=== PATIENT | male | born 1970 | race Caucasian/White ===

== ENCOUNTER → 2018-04-02 18:40 | Outpatient (CLI) | payer OTHER, SELFPAY ==
[2018-04-02 19:14] LABS: PSA,Total - Annual Screen 0.95 ng/mL (0.00-4.00)
== END ==
PROVIDERS: Visit Provider Nurse Practitioner
DX: E29.1 Testicular hypofunction (principal)
CPT/HCPCS: 84153; 84403; G0103

== ENCOUNTER → 2018-09-30 08:43 | Outpatient (CLI) | payer OTHER, SELFPAY ==
[2018-09-30 08:21] VITALS: BMI 34.4
--- NOTE | 2018-09-30 08:44 | RAD_ITS ---
STUDY: X-RAY - LEFT KNEE REASON FOR EXAM: Male, 48 years old. Left knee pain TECHNIQUE: 4 view(s) of the knee. COMPARISON: None. FINDINGS: Normal visualized distal femur. Normal visualized proximal tibia and fibula. Normal proximal tibiofibular articulation. Normal medial femorotibial compartment. Normal lateral femorotibial compartment. Normal patellofemoral articulation. Trace volume joint effusion noted. The soft tissue structures are unremarkable. RAD/Knee 4 or More Views IMPRESSION: No fracture, malalignment or erosive process. Trace joint effusion. Electronically Signed: Hayden Zimmerman MD at 17:07 EST , Service support ,
== END ==
PROVIDERS: Referring Provider Orthopaedic Surgery; Visit Provider Orthopaedic Surgery
DX: M70.41 Prepatellar bursitis, right knee (principal); Y93.9 Activity, unspecified
CPT/HCPCS: 73564

== ENCOUNTER → 2019-01-15 04:59 | Outpatient (CLI) | payer OTHER, SELFPAY ==
[2019-01-06 17:39] VITALS: BMI 36.3
[2019-01-15 05:20] LABS: Absolute Lymphocyte Count 1.13 X10^3/ul (0.83-4.51); Absolute Neutrophil Count 2.5 X10^3/uL (2.0-7.7); Basophil# 0.01 X10^3/uL; Basophil% 0.2 % (0-1); Eosinophil# 0.13 X10^3/uL; Eosinophils% 2.8 % (0-5); Hematocrit 47.1 % (40-54); Hemoglobin 15.7 g/dl (13.0-16.5); Lymphocyte # 1.13 X10^3/ul (4.0); Lymphocyte % 24.4 % (19-41); Mean Corp Hgb Conc 33.3 g/gl (32-36); Mean Corpuscular Hgb 28.3 pg (27.0-32.0); Mean Platelet Vol. 10.6 fl (6.2-12.0); Monocyte# 0.85 X10^3/uL; Monocyte% 18.4 % (0-10); Platelet Count 201 K/mm3 (150-450); RBC Distribution Width CV 14.1 % (11.6-14.6); RBC Distribution Width SD 43.7 fl (35.1-43.9); Red Blood Count 5.54 M/mm3 (4.6-6.2); White Blood Count 4.6 K/mm3 (4.4-11.0)
[2019-01-15 05:21] LABS: POSITIVE COUNT NO; POSITIVE DIFFERENTIAL NO; POSITIVE MORPHOLOGY NO
[2019-01-15 05:54] LABS: PSA,Total- Diagnostic 0.85 ng/mL (0.0-4.0)
[2019-01-18 13:12] LABS: Testosterone Free 15.3 pg/mL (6.8-21.5)
== END ==
PROVIDERS: Referring Provider Nurse Practitioner; Visit Provider Nurse Practitioner
DX: E29.1 Testicular hypofunction (principal)
CPT/HCPCS: 84153; 84402; 85025

== ENCOUNTER → 2019-02-11 18:58 | Outpatient (CLI) | payer OTHER, SELFPAY ==
[2019-02-06 18:19] VITALS: BMI 36.3
[2019-02-11 19:31] LABS: Absolute Lymphocyte Count 1.53 X10^3/ul (0.83-4.51); Basophil# 0.03 X10^3/uL; Basophil% 0.3 % (0-1); Eosinophil# 0.15 X10^3/uL; Eosinophils% 1.7 % (0-5); Hematocrit 48.7 % (40-54); Hemoglobin 16.3 g/dl (13.0-16.5); Lymphocyte # 1.53 X10^3/ul (4.0); Lymphocyte % 17.1 % (19-41); Mean Corp Hgb Conc 33.5 g/gl (32-36); Mean Corpuscular Hgb 28.4 pg (27.0-32.0); Mean Platelet Vol. 10.7 fl (6.2-12.0); Monocyte# 1.21 X10^3/uL; Monocyte% 13.5 % (0-10); Neutrophil # 6.03 X10^3/uL (2.7-7.7); Neutrophil % 67.2 % (47-70); Platelet Count 224 K/mm3 (150-450); RBC Distribution Width CV 14.8 % (11.6-14.6); RBC Distribution Width SD 45.9 fl (35.1-43.9); Red Blood Count 5.73 M/mm3 (4.6-6.2)
[2019-02-11 19:42] LABS: POSITIVE COUNT NO; POSITIVE DIFFERENTIAL NO; POSITIVE MORPHOLOGY NO
[2019-02-11 19:52] LABS: PSA,Total- Diagnostic < 0.01 ng/mL (0.0-4.0)
[2019-02-15 12:13] LABS: Testosterone Free 21.1 pg/mL (6.8-21.5)
== END ==
PROVIDERS: Referring Provider Nurse Practitioner; Visit Provider Nurse Practitioner
DX: E29.1 Testicular hypofunction (principal)
CPT/HCPCS: 84153; 84402; 85025

== ENCOUNTER → 2023-10-29 | Outpatient (CLI) | payer OTHER, SELFPAY ==
--- OUTSIDE RECORDS SUMMARY | 2023-10-29 06:36 | XMS RPT_ITS | CCD ---
Author Name Unknown Address [address] [place] [address] Organization [facility] Care Team Providers Care Pan Operator Name Role Phone Kirill Walsh MD Primary Care Provider FRANDY, JANNETTE Referring Unavailable WALSH, KIRILL R Primary Care Unavailable MINNIEEEN, JANNETTE Attending Unavailable GRICEL AVENDANO Primary Care Unavailable FRANDY, JANNETTE Admitting Unavailable VALERIA WISEYA Attending Unavailable Kirill Walsh MD Primary Care Provider [phone] Martell OFFICE SUPPORT ASSISTANT-CNicky Unavailable Reta Fox Unavailable KIRILL WALSH Attending Unavailable , KIRILL Primary Care Unavailable KIRILL WALSH Attending Unavailable , KIRILL Primary Care Unavailable Kirill Walsh MD Primary Care Provider CRISSY, WAGNER A Primary Care Unavailable SELF Referring Unavailable SILVIA FLYNN Attending Unavailable WALSH, KIRILL R Primary Care Unavailable ALADOMENICEEN, JANNETTE Referring Unavailable MURALI BANKS Referring Unavailable WALSH, KIRILL R Primary Care Unavailable CRISSY, WAGNER A Referring Unavailable CRISSY, WAGNER A Primary Care Unavailable HARP, RADHA Attending Unavailable WALSH, KIRILL R Primary Care Unavailable CRISSY, WAGNER A Primary Care Unavailable HARP, RADHA Attending Unavailable SELF Referring Unavailable CRISSY, WAGNER A Primary Care Unavailable HARP, RADHA Attending Unavailable SELF Referring Unavailable HARP, RADHA Attending Unavailable CRISSY, WAGNER A Primary Care Unavailable CRISSY, WAGNER A Primary Care Unavailable BETHANY POSADA Attending Unavailable NEAL MARCUS Referring Unavailable CRISSY, WAGNER A Attending Unavailable NEAL MARCUS Referring Unavailable WALSH, KIRILL R Primary Care Unavailable WALSH, KIRILL R Primary Care Unavailable HARP, RADHA Attending Unavailable NEAL MARCUS Attending Unavailable WALSH, KIRILL R Primary Care Unavailable HARP, RADHA Attending Unavailable WALSH, KIRILL R Primary Care Unavailable JANNETTE WISE Attending Unavailable WALSH, KIRILL R Primary Care Unavailable WALSH, KIRILL R Referring Unavailable HARP, RADHA Attending Unavailable WALSH, KIRILL R Primary Care Unavailable HARP, RADHA Attending Unavailable WALSH, KIRILL R Primary Care Unavailable WALSH, KIRILL R Primary Care Unavailable HARP, RADHA Attending Unavailable Allergies Allergy Classification Reported Allergen(s) Allergy Type Date of Onset Reaction(s) Facility (5 sources) candesartan Drug Allergy 12-12-2018 [facility] [employer] Work Phone: (9 sources) [employer]; Translations: [LITHIUM] Drug Allergy 05-03-2013 [facility] (5 sources) nefazodone Drug Allergy 09-25-2013 [facility] (4 sources) nefazodone; Translations: [NEFAZODONE HCL] Drug Allergy 09-25-2013 [facility] Other [facility] Medications Current Medications Medication Drug Class(es) Dates Sig (Normalized) Sig (Original) B-D 3CC LUER-CRIS SYR 86UV4-5/2 22G X 1-1/2 3 ML misc (5 sources) Start: 07-03-2022 B-D 3CC LUER-CRIS SYR 93BE3-8/2 22G X 1-1/2 3 ML misc COVERED BY INSURANCE AND AVAILABLE. FOR USE BIWEEKLY. 0 07/03/2022 Active 12 hr buPROPion hydrochloride 150 mg extended release oral tablet (6 sources) Aminoketone Start: 06-30-2022 take 1 tablet by mouth once daily buPROPion SR (Wellbutrin SR) 150 MG 12 hr tablet Take 150 mg by mouth daily. 0 06/30/2022 Active Completed/Discontinued Medications Medication Drug Class(es) Dates Sig (Normalized) Sig (Original) amLODIPine 10 mg oral tablet (5 sources) Dihydropyridine Calcium Channel Tova Start: 08-24-2022 End: 08-31-2023 take 1 tablet by mouth once daily amLODIPine (Norvasc) 10 MG tablet Indications: Essential (primary) hypertension TAKE 1 TABLET BY MOUTH EVERY DAY 90 tablet 3 08/24/2022 08/31/2023 Discontinued docosahexaenoic acid 120 mg / eicosapentaenoic acid 180 mg oral capsule (3 sources) End: 03-26-2023 fish oil-omega-3 fatty acids 1000 MG capsule Take by mouth. 0 03/26/2023 Discontinued (Med list cleanup) magnesium gluconate 500 mg oral tablet (3 sources) End: 03-26-2023 magnesium gluconate (Magonate) 500 MG tablet Take 400 mg by mouth. 0 03/26/2023 Discontinued (Med list cleanup) UNABLE TO FIND (9 sources) End: 03-26-2023 UNABLE TO FIND Med Name: beet juice 0 03/26/2023 Discontinued (Med list cleanup) Problems Active Problems Problem Classification Problem Date Documented Date Episodic/Chronic Abdominal hernia (1 source) Diaphragmatic hernia without obstruction or gangrene; Translations: [Hiatal hernia] Onset: 12-16-2022 Episodic Anxiety disorders (6 sources) Panic disorder without agoraphobia; Translations: [Panic disorder [episodic paroxysmal anxiety]] Onset: 04-06-2012 05-31-2022 Chronic Attention-deficit, conduct, and disruptive behavior disorders (1 source) Attention-deficit hyperactivity disorder, predominantly inattentive type; Translations: [Attention deficit hyperactivity disorder (ADHD), predominantly inattentive type] Onset: 03-26-2014 Chronic Disorders of lipid metabolism (1 source) Hyperlipidemia, unspecified; Translations: [Hyperlipidemia, unspecified hyperlipidemia type] Onset: 11-16-2022 Chronic Disorders usually diagnosed in infancy, childhood, or adolescence (5 sources) Attention deficit hyperactivity disorder, predominantly inattentive type; Translations: [Other specified behavioral and emotional disorders with onset usually occurring in childhood and adolescence] Onset: 02-13-2020 05-31-2022 Chronic Esophageal disorders (6 sources) Gastroesophageal reflux disease; Translations: [Gastro-esophageal reflux disease without esophagitis] Onset: 09-23-2022 09-23-2022 Chronic Essential hypertension (12 sources) Hypertensive disorder; Translations: [Essential (primary) hypertension] Onset: 09-22-2021 05-31-2022 Chronic Mood disorders (18 sources) Bipolar I disorder; Translations: [Bipolar disorder, unspecified] Onset: 08-21-2013 05-31-2022 Chronic Osteoarthritis (5 sources) Bilateral osteoarthritis of knees; Translations: [Bilateral primary osteoarthritis of knee] Onset: 04-01-2022 09-23-2022 Chronic Other endocrine disorders (3 sources) Endocrine disorder, unspecified; Translations: [Endocrine disorder, unspecified] Onset: 05-31-2022 Episodic Other hereditary and degenerative nervous system conditions (1 source) Essential tremor; Translations: [Essential tremor] Onset: 04-01-2023 Chronic Other male genital disorders (5 sources) Male erectile dysfunction, unspecified; Translations: [Impotence of organic origin] Onset: 09-23-2022 09-23-2022 Chronic Other nervous system disorders (1 source) Other drug induced secondary parkinsonism; Translations: [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)] Onset: 04-01-2023 Chronic Other nervous system disorders (1 source) Other acute postprocedural pain; Translations: [Post-op pain] Onset: 12-03-2022 Episodic Other screening for suspected conditions (not mental disorders or infectious disease) (1 source) Encounter for screening for malignant neoplasm of prostate; Translations: [Prostate cancer screening] Onset: 10-18-2023 Episodic Residual codes; unclassified (1 source) Sleep apnea, unspecified; Translations: [Sleep apnea, unspecified type] Onset: 11-13-2022 Chronic Unclassified (1 source) High Cholesterol Unclassified (1 source) No-show for appointment; Translations: [No-show for appointment] Onset: 12-15-2022 Viral infection (2 sources) COVID-19; Translations: [COVID-19] Onset: 04-26-2023 Past or Other Problems Problem Classification Problem Date Documented Da te Episodic/Chronic Diabetes mellitus without complication (7 sources) Impaired fasting glycemia; Translations: [Impaired fasting glucose] Onset: 08-19-2020 05-31-2022 Episodic Other endocrine disorders (6 sources) Hypotestosteronis m; Translations: [Endocrine disorder, unspecified] Onset: 04-11-2019 05-31-2022 Episodic Other nervous system disorders (1 source) Tremor Onset: 04-01-2023 Episodic Residual codes; unclassified (1 source) Procedure and treatment not carried out for other reasons; Translations: [Appointment canceled by hospital] Onset: 12-15-2022 Episodic Results Test Name Value Interpretation Reference Range Facil ity Vital Signs Date Time Vital Sign Value Performing Clinician Leai aparna 04-26-2023 17:38-0400 Body temperature 98.24 [degF] Nicky Martell OFFICE SUPPORT ASSISTANT-C [facility] 04-26-2023 17:38-0400 Body weight 96.6 kg Nicky Martell OFFICE SUPPORT ASSISTANT-C [facility] 04-26-2023 17:38-0400 Diastolic blood pressure 86 mm[Hg] Nicky Martell OFFICE SUPPORT ASSISTANT-C [facility] 04-26-2023 17:38-0400 Heart rate 60 /min Nicky Martell OFFICE SUPPORT ASSISTANT-C [facility] 04-26-2023 17:38-0400 Respiratory rate 16 /min Nicky Martell OFFICE SUPPORT ASSISTANT-C [facility] 04-26-2023 17:38-0400 SaO2% (BldA) [Mass fraction] 98 % Nicky Martell OFFICE SUPPORT ASSISTANT-C [facility] 04-26-2023 17:38-0400 Systolic blood pressure 132 mm[Hg] Nicky Martell OFFICE SUPPORT ASSISTANT-C [facility] 03-24-2023 08:00-0400 Diastolic blood pressure 78 mm[Hg] Kirill Walsh MD Work Phone: [facility] [employer] 03-24-2023 08:00-0400 Systolic blood pressure 136 mm[Hg] Kirill Walsh MD Work Phone: [facility] [employer] 03-24-2023 07:43-0400 Body height 175.3 cm Kirill Walsh MD Work Phone: [facility] [employer] 03-24-2023 07:43-0400 Body mass index (BMI) [Ratio] 31.9 kg/m2 Kirill Walsh MD Work Phone: [facility] [employer] 03-24-2023 07:43-0400 Body weight 97.98 kg Kirill Walsh MD Work Phone: [facility] [employer] 03-24-2023 07:43-0400 Heart rate 84 /min Kirill Walsh MD Work Phone: [facility] [employer] 03-24-2023 07:43-0400 SaO2% (BldA) [Mass fraction] 96 % Kirill Walsh MD Work Phone: [facility] Encounters Encounter Date Encounter Type Care Provider Facility Start: 10-18-2023 End: 10-18-2023 ambulatory WAGNER A CRISSY Facility:[facility] Start: 10-18-2023 ambulatory WAGNER A CRISSY Faci [facility] Start: 09-24-2023 End: 09-24-2023 ambulatory WAGNER A CRISSY Facility:[facility] Start: 09-20-2023 End: 09-20-2023 ambulatory WAGNER A CRISSY Facility:[facility] Start: 08-30-2023 Refill Kirill Walsh MD Work Phone: [facility] Start: 08-23-2023 End: 08-23-2023 ambulatory RADHA HARP Facility:[facility] Start: 07-27-2023 End: 07-27-2023 ambulatory WAGNER A CRISSY Facility:[facility] Start: 07-26-2023 End: 07-26-2023 ambulatory WAGNER A CRISSY Facility:[facility] Start: 06-21-2023 End: 06-21-2023 ambulatory KIRILL R WALSH Facility:[facility] Start: 05-03-2023 End: 05-03-2023 ambulatory KIRILL R Facility:[facility] Start: 04-26-2023 Nicky Martell OFFICE SUPPORT ASSISTANT -C [facility] Start: 2023 Refill Kirill Walsh MD Work Phone: [facility] Start: 04-01-2023 End: 04-01-2023 ambulatory NEAL CHAVEZTER Facility:[facility] Start: 03-24-2023 End: 03-24-2023 ambulatory KIRILL WALSH [facility] Start: 03-24-2023 End: 03-24-2023 Office outpatient visit 25 minutes Kirill Walsh MD Work Phone: [facility] Procedures Date Procedure Procedure Detail Performing Clinician Start: 03-24-2023 Assay of testosteron e total Kirill Walsh MD Work Phone: Start: 10-12-2022 Lipid 1996 panel - S richardson or Plasma Kirill Walsh MD Work Phone: Plan of Treatment Date Care Activity Detail Author Start: 2029 RSV Immunization age d 60 or older (1 - 1-dose 60+ series) RSV Immunization aged 60 or older (1 - 1-dose 60+ series) [facility] Start: 01-26-2029 DTaP/Tdap/Td Vaccine s (2 - Tdap) DTaP/Tdap/Td Vaccines (2 - Tdap) [facility] Start: 01-26-2029 DTaP/Tdap/Td Vaccine s (3 - Td or Tdap) DTaP/Tdap/Td Vaccines (3 - Td or Tdap) [facility] Start: 10-12-2027 Lipid panel Lipid Panel [facility] Start: 10-12-2023 Diabetes mellitus screening Diabetes Screening [facility] Start: 09-24-2023 End: 09-24-2023 Patient encounter procedure [facility] Start: 09-20-2023 Zoster Vaccines (2 of 2) Zoster Vacc lon (2 of 2) [facility] Start: 04-16-2023 COVID-19 Vaccine ( season) COVID-19 Vaccine ( season) [facility] Start: 04-16-2023 Influenza vaccination Influenza Vacc ine (#1) [facility] Start: 03-24-2023 End: 03-24-2023 Patient encounter procedure 03/24/2023 Office Visit Family Medicine Kirill Walsh MD [address] [place] [address] [facility] Start: 03-23-2023 Depresssion Monitoring Depresssion M onitoring [facility] Start: 02-28-2021 COVID-19 Vaccine (3 - Booster for Pfizer series) COVID-19 Vaccine (3 - Booster for Pfizer series) [facility] Start: 2019 Zoster Vaccines (1 of 2) Zoster Vacc lon (1 of 2) [facility] Start: 1987 Hepatitis C screening Hepatitis C Sc reening [facility] Start: 1970 MMR Vaccines (1 of 1 - Standard series) MMR Vaccines (1 of 1 - Standard series) [facility] Start: 1969 Hepatitis B Vaccines (1 of 3 - 3-dose series) Hepatitis B Vaccines (1 of 3 - 3-dose series) [facility] Start: 1969 HIV screening HIV Screening [facility] Start: 1969 Screening for malign ant neoplasm of colon [facility] Immunizations Immunization Date Immunization Notes Care Provider Fa [facility] 08-06-2022 Influenza, injectabl e, [place] Canine Kidney, preservative free, quadrivalent Kirill Walsh MD Work Phone: [facility] 08-06-2022 influenza virus vacc ine, unspecified formulation Kirill Walsh MD Work Phone: [facility] 01-03-2021 Pfizer SARS-CoV-2 Vaccination Kirill Walsh MD Work Phone: [facility] 12-13-2020 Pfizer SARS-CoV-2 Vaccination Kirill Walsh MD Work Phone: [facility] 05-18-2019 influenza, injectabl e, quadrivalent, preservative free Kirill Walsh MD Work Phone: [facility] 01-26-2019 diphtheria, tetanus toxoids and acellular pertussis vaccine, unspecified formulation Kirill Walsh MD Work Phone: [facility] 01-26-2019 tetanus toxoid, redu ericka diphtheria toxoid, and acellular pertussis vaccine, adsorbed Kirill Walsh MD Work Phone: [facility] 04-05-2015 tetanus and diphther ia toxoids, adsorbed, preservative free, for adult use (5 Lf of tetanus toxoid and 2 Lf of diphtheria toxoid) Kirill Walsh MD Work Phone: [facility] Payers Date Payer Category Payer Private Health Insurance [facility] [id number] 2022-Present [address] [place] [address] Commercial [id number] 2018 Unknown [id number] Social History Date Type Detail Facility Tobacco smoking status NHIS Never smoked tobacco [facility] Start: 09-23-2022 End: 03-24-2023 Alcohol intake Lifetime non-drinker (finding) [facility] Start: 09-23-2022 History SDOH Alcohol Frequency 1 [facility] Start: 09-23-2022 History SDOH Alcohol Std Drinks 0 [facility] Start: 09-23-2022 History SDOH Financial 5 [facility] Start: 09-23-2022 History SDOH Transport Med 2 [facility] Start: 1970 Sex Assigned At Not on file S [facility] Start: 09-23-2022 End: 03-24-2023 History of Social function [facility] Start: 09-23-2022 End: 03-24-2023 Alcohol Use Disorder Identification Test - Consumption [AUDIT-C] [facility] How often to you hav e a drink containing alcohol? Never [facility] How many standard dr inks containing alcohol do you have on a typical day? Patient does not drink [facility] (I/We) worried ita er (my/our) food would run out before (I/we) got money to buy more. Never true [facility] Start: 03-14-2023 End: 03-24-2023 Exposure to SARS-CoV-2 (event) [facility] sure [facility] Notes 11-17-2022 to 10-18-2023 Telephone Encounter - Thao Araiza MA - 08/30/2023 9:22 AM ESTTelephone Encounter - Thao Araiza MA - 08/30/2023 9:22 AM ESTTelephone Encounter - Kirill Walsh MD - 04/23/2023 5:47 PM EDT Note Date & Type Note Facility 10-18-2023 Note HNO ID: [id number] Author: SILVIA FLYNN MD Service: ? Author Type: Resident Type: Progress Notes Filed: 10/25/2023 15:40 Note Text: PSYC FOLLOW UP - PSYCHIATRIC PROGRESS NOTE CC: Follow up With the patient consent, visit was performed virtually. I have communicated my name and active licensure. The patient's identity and physical location were verified at the time of this visit. Either the patient or their legal patient support representative has been informed of the risks and benefits of -- and alternatives to -- treatment through a remote evaluation and consents to proceed with the evaluation remotely. HPI: -Shashi is seen virtually. He joins the visit with his Jacki. She participates intermittently during the visit with his permission. -Tells me that he self titrated his Abilify to 15 mg (from 10 mg) around two weeks ago because he was still noting some irritability struggles. -Has tolerated this dose well. No side effects. No abnormal movements. No more chewing his tongue anymore (previously reported with other antipsychotics). Weight is stable. -Mood has been good. Much less irritability. Feels more steady . Sleep also reported as good. Denies anxiety concern. Appetite has been stable to slightly increased. Jacki also feels he is better. -Work has been going well. He no longer has been having concentration difficulties at his work. -No more obsession with fishing (he does still enjoy it, but is making less impulsive purchases and is able to talk about other subjects now). -Does ask about the possibility of a return to a transdermal formulation of his ADHD medication. Years ago he was on a patch formulation and felt that it was working better for him (though it did cause sleep issues). Would like to discuss the possibility of change at next visit. -Denies other questions or concerns. Denies SI, HI, AH, VH. Risks and benefits of the medication, including any black box warnings, were discussed with the patient. He verbalizes understanding, and wishes to proceed with no changes. Interval Progress: Slightly improved PATIENT DATA: Generalized Anxiety Disorder Scale (PRABHA-7) PRABHA - 7 SCORES 09/19/2023 09/19/2023 10/18/2023 PRABHA-7 Score 4 4 2 (0-4) minimal anxiety, (5-9) mild anxiety, (10-14) moderate anxiety, (15-21) severe anxiety Patient Health Questionnaire (PHQ-9) PHQ-9 09/19/2023 09/19/2023 10/18/2023 Score 9 9 7 (0-4) minimal depression, (5-9) mild depression, (10-14) moderate depression, (15-19) moderately severe depression, (20-27) severe depression PROMIS Global Health PROMIS Global Health - (T-Scores - the mean of general population = 50. Five points is a clinically meaningful difference.) 03/29/2023 06/21/2023 07/27/2023 Physical T-Score 42.3 47.7 44.9 Mental T-Score 45.8 41.1 43.5 PAST MEDICAL HISTORY Diagnosis Date Pandey's esophagus Depression Psychiatric disorder PAST SURGICAL HISTORY Procedure Laterality Date EGD 11/28/2012 Repeat EGD in 3 years LAP REPAIR PARAESOPHAGEAL HERNIA 12/03/2022 w/ mesh PAST SURGICAL HISTORY OF Removal lipomas PAST SURGICAL HISTORY OF Multiple ECTs Current Outpatient Medications Medication Sig Dispense Refill ARIPiprazole (ABILIFY) 15 mg tablet Take 1 tablet by mouth once daily for 90 doses. 90 tablet 1 lamoTRIgine (LAMICTAL) 200 mg tablet Take 1 tablet by mouth once daily. 90 tablet 0 buPROPion SR (WELLBUTRIN SR) 150 mg 12 hr tablet Take 1 tablet by mouth once daily. 90 tablet 0 dexmethylphenidate XR (FOCALIN XR) 30 mg biphasic capsule Take 1 capsule by mouth two times a day for 30 days. 60 capsule 0 divalproex ER (DEPAKOTE ER) 500 mg 24 hr tablet Take 5 tablets by mouth daily at bedtime. 450 tablet 0 gabapentin (NEURONTIN) 600 mg tablet Take 1 tablet by mouth three times a day for 90 days. 270 tablet 0 metoprolol succinate ER (TOPROL XL) 25 mg 24 hr tablet Take 1 tablet by mouth every afternoon. testosterone cypionate (DEPO-TESTOSTERONE) 100 mg/mL injection Inject 1 mL intramuscularly one time a week for 90 days. 12 mL 0 Syringe, Disposable, 1 mL 1 Each one time a week. 25 Each 4 Needle, Disp, 16 G 16 gauge x 1 ndle 1 Each one time a week. For drawing up 25 Each 4 Needle, Disp, 22 G 22 gauge x 1 1 Each one time a week. For injection 25 Each 4 divalproex ER (DEPAKOTE ER) 500 mg 24 hr tablet Take 5 tablets by mouth daily at bedtime. Takign 1500mg in th morning and 1000 in the evening lisinopril (ZESTRIL) 10 mg tablet Take 10 mg by mouth once daily. testosterone (ANDROGEL) 25 mg/ 2.5g (1%) Apply to affected area once daily. rabeprazole (ACIPHEX) 20 mg tablet Take 1 tablet by mouth once daily. 90 tablet 3 No current facility-administered medications for this visit. ROS: Some increased appetite. No longer endorses involuntary rubbing of his tongue against the roof of his mouth All other systems negative. PFSH: No changes VITAL SIGNS: There were no vitals filed for this visi (more content not included)... [facility] Note HNO ID: [id number] Author: SILVIA FLYNN MD Service: ? Author Type: Resident Type: Progress Notes Filed: 09/27/2023 13:19 Note Text: PSYC FOLLOW UP - PSYCHIATRIC PROGRESS NOTE CC: Follow up With the patient consent, visit was performed virtually. I have communicated my name and active licensure. The patient's identity and physical location were verified at the time of this visit. Either the patient or their legal patient support representative has been informed of the risks and benefits of -- and alternatives to -- treatment through a remote evaluation and consents to proceed with the evaluation remotely. HPI: -Shashi is seen virtually. He joins the visit alone today (normally he is with his Jacki). -Between visits he messaged alerting me that Caplyta caused him to have what he describes as jerking movements . He stopped taking it after being on it for a few days. After some discussion, it was decided that he would retrial Abilify, a medication he had been on in the past with good effect. -Naomi seems to be working OK . No more rubbing the roof of his mouth with his toungue. No more jerking movements reported. Not angry/irritable anymore. Still feels off , but not necessarily depressed. Some increased hunger, but it is mild. Energy is a little low. Anxiety is mild , it isn't good, it isn'tbad . Overall is pleased with the change. -Wants to wait on dosage increases. Currently on 10 mg daily dose. -Has noticed less interest in buying fishing supplies. Far less mental obsession. Still focuses on fishing, but not too much out of the ordinary for him. -Looking forward to meeting with treatment resistant clinic team here at [facility] later this week. Hopes to explore interventional possibilities, with goal of ideally getting off of some of his medications. -Denies SI, HI, AH, VH. Risks and benefits of the medication, including any black box warnings, were discussed with the patient. He verbalizes understanding, and wishes to proceed with no changes. Interval Progress: Slightly improved PATIENT DATA: Generalized Anxiety Disorder Scale (PRABHA-7) PRABHA - 7 SCORES 08/23/2023 09/19/2023 09/19/2023 PRABHA-7 Score 8 4 4 (0-4) minimal anxiety, (5-9) mild anxiety, (10-14) moderate anxiety, (15-21) severe anxiety Patient Health Questionnaire (PHQ-9) PHQ-9 08/23/2023 09/19/2023 09/19/2023 Score 9 9 9 (0-4) minimal depression, (5-9) mild depression, (10-14) moderate depression, (15-19) moderately severe depression, (20-27) severe depression PROMIS Global Health PROMIS Global Health - (T-Scores - the mean of general population = 50. Five points is a clinically meaningful difference.) 03/29/2023 06/21/2023 07/27/2023 Physical T-Score 42.3 47.7 44.9 Mental T-Score 45.8 41.1 43.5 PAST MEDICAL HISTORY Diagnosis Date Pandey's esophagus Depression Psychiatric disorder PAST SURGICAL HISTORY Procedure Laterality Date EGD 11/28/2012 Repeat EGD in 3 years LAP REPAIR PARAESOPHAGEAL HERNIA 12/03/2022 w/ mesh PAST SURGICAL HISTORY OF Removal lipomas PAST SURGICAL HISTORY OF Multiple ECTs Current Outpatient Medications Medication Sig Dispense Refill ARIPiprazole (ABILIFY) 10 mg tablet Take 0.5 tablets by mouth once daily for 3 days, THEN 1 tablet once daily. 32 tablet 0 buPROPion SR (WELLBUTRIN SR) 150 mg 12 hr tablet Take 1 tablet by mouth once daily. 90 tablet 0 divalproex ER (DEPAKOTE ER) 500 mg 24 hr tablet Take 5 tablets by mouth daily at bedtime. 450 tablet 0 gabapentin (NEURONTIN) 600 mg tablet Take 1 tablet by mouth three times a day for 90 days. 270 tablet 0 lamoTRIgine (LAMICTAL) 200 mg tablet Take 1 tablet by mouth once daily. 90 tablet 0 dexmethylphenidate XR (FOCALIN XR) 30 mg biphasic capsule Take 1 capsule by mouth two times a day for 30 days. 60 capsule 0 metoprolol succinate ER (TOPROL XL) 25 mg 24 hr tablet Take 1 tablet by mouth every afternoon. testosterone cypionate (DEPO-TESTOSTERONE) 100 mg/mL injection Inject 1 mL intramuscularly one time a week for 90 days. 12 mL 0 Syringe, Disposable, 1 mL 1 Each one time a week. 25 Each 4 Needle, Disp, 16 G 16 gauge x 1 ndle 1 Each one time a week. For drawing up 25 Each 4 Needle, Disp, 22 G 22 gauge x 1 1 Each one time a week. For injection 25 Each 4 divalproex ER (DEPAKOTE ER) 500 mg 24 hr tablet Take 5 tablets by mouth daily at bedtime. Takign 1500mg in th morning and 1000 in the evening lisinopril (ZESTRIL) 10 mg tablet Take 10 mg by mouth once daily. testosterone (ANDROGEL) 25 mg/ 2.5g (1%) Apply to affected area once daily. rabeprazole (ACIPHEX) 20 mg tablet Take 1 tablet by mouth once daily. 90 tablet 3 No current facility-administered medications for this visit. ROS: Some increased appetite. No longer endorses involuntary rubbing of his tongue against the roof of his mouth All other systems negative. PFSH: No changes VITAL SIGNS: There were no vitals filed for this visit. MENTAL ST (more content not included)... [facility] 08-30-2023 Telephone encounter Note Patient last seen on 03/24/2023 [facility] 08-30-2023 Miscellaneous Notes Patient last seen on 03/24/2023 documented in this encounter [facility] 08-23-2023 Note HNO ID: [id number] Author: SILVIA FLYNN MD Service: ? Author Type: Resident Type: Progress Notes Filed: 08/31/2023 12:02 Note Text: PSYC FOLLOW UP - PSYCHIATRIC PROGRESS NOTE CC: Follow up With the patient consent, visit was performed virtually. I have communicated my name and active licensure. The patient's identity and physical location were verified at the time of this visit. Either the patient or their legal patient support representative has been informed of the risks and benefits of -- and alternatives to -- treatment through a remote evaluation and consents to proceed with the evaluation remotely. HPI: -Shashi is seen virtually. He is present for the visit with his Jacki. She stays throughout the visit and provides additional context with Shashi's permission. -At our last appointment his Vraylar was increased to 6 mg. -Does feel that he got some benefit from the increased Vraylar from a mood perspective, but unfortunately, he has also experienced several troublesome side effects. -On the 6 mg of Vraylar he began noticing some involuntary rubbing of his tongue on the roof of his mouth, as well as involuntary biting or chewing of his tongue. At one point stated that he was having involuntary tongue protrusions out of his mouth. Has also been experiencing dramatically increased appetite, and reports gaining ~30 pounds over the last month. -Between visits he had reached out to me with concerns about these side effects and we discussed tapering his dose of Vraylar and eventual discontinuation. As of today he is currently taking 4.5 mg daily as when he attempted to go below 4.5 mg, his psychiatric symptoms began returning severely. -On 4.5 mg his involuntary movements are much less severe. Still some rubbing of his tongue on the roof of his mouth. -Notes that he has been more irritable on the lowered dose. Couldn't even go to work one day recently because of fear of his anger. Reports feeling mildly depressed (PHQ pre-visit had increased from a 4 last visit to a 9 currently). Appetite has somewhat decreased on the lower dosage. Obsessions about fishing/fishing equipment has lessened. -Interested in changing to an alternative medication. We discussed numerous options at length. He has tried many different medications in the past. After long risk/benefit discussion, we elected to proceed with discontinuation of Vraylar and initiation of Caplyta. -He denies SI, HI, AH, VH. Endorses no further questions or concerns. Is in agreement with the plan. Risks and benefits of the medication, including any black box warnings, were discussed with the patient. He verbalizes understanding, and wishes to proceed with no changes. Interval Progress: Slightly worse PATIENT DATA: Generalized Anxiety Disorder Scale (PRABHA-7) PRABHA - 7 SCORES 06/21/2023 07/27/2023 08/23/2023 PRABHA-7 Score 6 2 8 (0-4) minimal anxiety, (5-9) mild anxiety, (10-14) moderate anxiety, (15-21) severe anxiety Patient Health Questionnaire (PHQ-9) PHQ-9 06/21/2023 07/27/2023 08/23/2023 Score 4 4 9 (0-4) minimal depression, (5-9) mild depression, (10-14) moderate depression, (15-19) moderately severe depression, (20-27) severe depression PROMIS Global Health PROMIS Global Health - (T-Scores - the mean of general population = 50. Five points is a clinically meaningful difference.) 03/29/2023 06/21/2023 07/27/2023 Physical T-Score 42.3 47.7 44.9 Mental T-Score 45.8 41.1 43.5 PAST MEDICAL HISTORY Diagnosis Date Pandey's esophagus Depression Psychiatric disorder PAST SURGICAL HISTORY Procedure Laterality Date EGD 11/28/2012 Repeat EGD in 3 years LAP REPAIR PARAESOPHAGEAL HERNIA 12/03/2022 w/ mesh PAST SURGICAL HISTORY OF Removal lipomas PAST SURGICAL HISTORY OF Multiple ECTs Current Outpatient Medications Medication Sig Dispense Refill cariprazine (VRAYLAR) 1.5 mg capsule Take 3 capsules by mouth once daily. 90 capsule 0 dexmethylphenidate XR (FOCALIN XR) 30 mg biphasic capsule Take 1 capsule by mouth two times a day for 30 days. 60 capsule 0 metoprolol succinate ER (TOPROL XL) 25 mg 24 hr tablet Take 1 tablet by mouth every afternoon. testosterone cypionate (DEPO-TESTOSTERONE) 100 mg/mL injection Inject 1 mL intramuscularly one time a week for 90 days. 12 mL 0 Syringe, Disposable, 1 mL 1 Each one time a week. 25 Each 4 Needle, Disp, 16 G 16 gauge x 1 ndle 1 Each one time a week. For drawing up 25 Each 4 Needle, Disp, 22 G 22 gauge x 1 1 Each one time a week. For injection 25 Each 4 lamoTRIgine (LAMICTAL) 200 mg tablet Take 1 tablet by mouth once daily. 90 tablet 0 gabapentin (NEURONTIN) 600 mg tablet Take 1 tablet by mouth three times a day for 90 days. 270 tablet 0 buPROPion SR (ZYBAN SR; WELLBUTRIN SR) 150 mg 12 hr tablet Take 1 tablet by mouth once daily. 90 tablet 0 divalproex ER (DEPAKOTE ER) 500 mg 24 hr tablet Take 5 tablets by mouth daily at bedtime. 450 tabl (more content not included)... [facility] 07-27-2023 Note HNO ID: [id number] Author: Bethany Posada APRN.DELICATESSEN MANAGER Service: ? Author Type: Nurse Practitioner Type: Progress Notes Filed: 07/28/2023 10:53 AM Note Text: [facility] - FOLLOW UP EVALUATION Wagner Agrawal MD [address] [id number] Dear Wagner Agrawal MD: I had the pleasure of seeing Mr. Cedeño for follow-up today. As you know he is a 53 year old right-handed male with a history of tremor since 2012. He has a significant history of Bipolar 2 on Latuda and Depakote. He is seen with his . Subjective Previous Plan-04/01/2023 Visit: essential tremor with secondary parkinsonism - Stop Metoprolol and try switching to propranolol 60 mg LA, for 1 month and then increase to 120 mg once daily. Request for Primary Care - I sent a referral to set up with Dr. Agrawal Patient's perception of importance for healthcare provider to let them know of research trials for which they may be eligible? Somewhat important Interval History: Propranolol helped a little but he had major brain fog. He is now on Vraylar and he is having major problems with feeling like his legs are rubber. He also has noticed some lightheadedness. Tremors got worse when he went off the propranolol. He gets stressed and his tremors are much worse. He continues to have tremor when performing tasks like holding a grocery bag or trying to hold a flashlight steady. He has noticed after increasing the Vraylar to the current dose that he chews on his mouth constantly and now he has sores in his mouth. He also feels his tongue rubbing on the roof of his mouth frequently and he is not consciously doing it. He has also gained about 25 lbs on Vraylar. Movement Disorders Medications Schedule - as of the start of the visit: Medications AM Inderal LA 60 Questionnaires: In addition, the following areas that may be affected by abnormal involuntary movements were evaluated: Daily activities Difficulties with eatin (none) Difficulties in dressin (none) Difficulties with hygiene activities: 0 (none) Difficulties with handwritin (none) Difficulties with doing hobbies and other activities: Yes (moderate) Difficulties turning in bed: 0 (none) Difficulties getting out of bed, car or chair: 0 (none) Tremors/Gait/Balance Shaking or tremors: Yes (moderate) Walking and balance problems: Yes (slight) Number of falls in the Last Month: 0 Gait freezin (none) Autonomic/Pain Lightheadeness on standin (none) Urinary problems: 0 (none) Constipation problems: 0 (none) Pain and other sensations: Yes (moderate) Speech/Swallowing Speech problems: 0 (none) Droolin (none) Chewing and swallowing problems: 0 (none) Sleep/Fatigue Sleep problems: Yes (mild) Daytime sleepiness: 0 (none) Fatigue: Yes (slight) Mood/Behavior Depression: PHQ-9 Score: 4 usually representing no significant (0-4) depression. Anxiety: PRABHA-7 Total Score: 2 usually representing no significant (0-4) anxiety. Finally, the following table shows the patient's overall global physical and mental health using the PROMIS scale: PROMIS-10 Flowsheet Row Office Visit from 07/27/2023 in [facility] from 06/21/2023 in Psychiatry Global Physical Health T Score 44.9 47.7 Global Mental Health T Score 43.5 41.1 0-10 Standard Pain Scale 3 3 *PROMIS-10 scoring scale: mean = 50, over 50 is above average, under 50 is below average In addition, the following Parkinson Lifestyle-associated features were evaluated: Conditions Prior to Dx: Depression: Yes Anxiety: Yes Melanoma: No Constipation: No Yelling: No Head Trauma: No Habits/exposures Prior to Dx Smoking: No Caffeinated coffee (1-cup+): Yes (and still do) Caffeinated soda/tea (2 cups+): Yes (and still do) Alcohol (1 bottle/shot/glass+): No Exercise (3x/wk+): Yes (but quit) Ibuprofen use (1x/wk+): Yes (but quit) Pesticides: No Welding: No ALLERGIES Allergen Reactions [employer] Mental Status Change memory and cognitive dysfunction at a normal blood level Serzone [Nefazodone* Other: See Comments severe muscle cramps Current Outpatient Medications Medication Sig metoprolol succinate ER (TOPROL XL) 25 mg 24 hr tablet Take 1 tablet by mouth every afternoon. testosterone cypionate (DEPO-TESTOSTERONE) 100 mg/mL injection Inject 1 mL intramuscularly one time a week for 90 days. Syringe, Disposable, 1 mL 1 Each one time a week. Needle, Disp, 16 G 16 gauge x 1 ndle 1 Each one time a week. For drawing up Needle, Disp, 22 G 22 gauge x 1 1 Each one time a week. For injection cariprazine (VRAYLAR) 6 mg capsule Take 1 capsule by mouth once daily. dexmethylphenidate XR (FOCALIN XR) 30 mg biphasic capsule Take 1 capsule by mouth two times a day for 90 days. Do not start before July 07, 2023. lamoTRIgine (LAMICTAL) 200 mg tablet Take 1 tablet by mouth once daily. gabapentin (NEURONTI (more content not included)... [facility] 07-26-2023 Note HNO ID: [id number] Author: Wagner Agrawal MD Service: ? Author Type: Physician Type: Progress Notes Filed: 07/28/2023 11:59 AM Note Text: ESTABLISHED PATIENT Shashi Cedeño is a 53 year old male presenting for [facility]. HISTORY OF PRESENT ILLNESS Has a hx of bipolar and ADHD. Had a fall which triggered it. Started with anxiety, depression, and progressed. Had ECTs. Concern parkinsonism is caused meds. Trying to swqitch up medications. Is on simvasatin. Hyperlipidemia Follow up Taking daily: Yes Trying to eat a diet low in saturated fat and cholesterol: Yes LDL Cholesterol 69 01/17/2021 LDL Cholesterol 67 07/20/2019 LDL Cholesterol 69 03/10/2017 HDL Cholesterol 43 01/17/2021 HDL Cholesterol 51 07/20/2019 HDL Cholesterol 40 03/10/2017 Triglyceride 50 01/17/2021 Triglyceride 65 07/20/2019 Triglyceride 80 03/10/2017 Cholesterol, Total 122 01/17/2021 Cholesterol, Total 131 07/20/2019 Cholesterol, Total 125 03/10/2017 AST 33 01/17/2021 ALT 31 01/17/2021 Hypertension Follow up Medication Adherence: no missed doses and took medications this morning Home monitoring: yes Heart palpitations: no Chest pain: no Last 3 Encounter BP Readings: Date: BP: 07/26/2023 130/80 01/01/2023 124/82 12/16/2022 126/73 Wears right knee brace. Waiting to get replacement. Hasn't had testosterone in a while. Gets a shot every 2 weeks. Use to get every week which was more helpful. Onmetoprolol for BP. No known heart issues per patient. Notes osme issues with ED with this. 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 Continue lisinopril. Taper metoprolol. 1/2 tablet for 1 month then stop. If beta-tova is needed consider bystolic to minimize ED effects Restart testosterone. Labs ordered for 3 months ?Topamax for ET. Could also benefit for weight gain. PSA ordered Labs ordered HISTORIES FAMILY HISTORY Problem Relation Age of Onset Tremor Father Tremor Brother Tremor Paternal Aunt PAST MEDICAL HISTORY Diagnosis Date Pandey's esophagus Depression Psychiatric disorder PAST SURGICAL HISTORY Procedure Laterality Date EGD 11/28/2012 Repeat EGD in 3 years LAP REPAIR PARAESOPHAGEAL HERNIA 12/03/2022 w/ mesh PAST SURGICAL HISTORY OF Removal lipomas PAST SURGICAL HISTORY OF Multiple ECTs Social History Tobacco Use Smoking status: Never Smokeless tobacco: Never Substance Use Topics Alcohol use: No Drug use: No Allergies: ALLERGIES Allergen Reactions [employer] Mental Status Change memory and cognitive dysfunction at a normal blood level Serzone [Nefazodone* Other: See Comments severe muscle cramps Medications: cariprazine (VRAYLAR) 6 mg capsule Take 1 capsule by mouth once daily. dexmethylphenidate XR (FOCALIN XR) 30 mg biphasic capsule Take 1 capsule by mouth two times a day for 90 days. Do not start before July 07, 2023. lamoTRIgine (LAMICTAL) 200 mg tablet Take 1 tablet by mouth once daily. gabapentin (NEURONTIN) 600 mg tablet Take 1 tablet by mouth three times a day for 90 days. buPROPion SR (ZYBAN SR; WELLBUTRIN SR) 150 mg 12 hr tablet Take 1 tablet by mouth once daily. divalproex ER (DEPAKOTE ER) 500 mg 24 hr tablet Take 5 tablets by mouth daily at bedtime. divalproex ER (DEPAKOTE ER) 500 mg 24 hr tablet Take 5 tablets by mouth daily at bedtime. Takign 1500mg in th morning and 1000 in the evening lisinopril (ZESTRIL) 10 mg tablet Take 10 mg by mouth once daily. testosterone (ANDROGEL) 25 mg/ 2.5g (1%) Apply to affected area once daily. simvastatin (ZOCOR) 20 mg tablet Take 20 mg by mouth daily at bedtime. rabeprazole (ACIPHEX) 20 mg tablet Take 1 tablet by mouth once daily. REVIEW OF SYSTEMS GENERAL: No weight loss, malaise or fevers. RESPIRATORY: Negative for cough, hemoptysis, wheezing or shortness of breath. CARDIOVASCULAR: Negative for chest pain, leg swelling or palpitations. All other systems reviewed and negative other than HPI. PHYSICAL EXAM BP 130/80 Pulse 70 Temp 36.4 ?C (97.5 ?F) Resp 16 Ht 175.3 cm (5' 9 ) Wt 103 kg (227 lb) SpO2 100% BMI 33.52 kg/m? General: Well developed, well nourished, in no acute distress. Head: Normocephalic, atraumatic. Neck: Supple. Eyes: Normal conjunctiva, no scleral icterus. Lungs: Clear to auscultation bilaterally, no rubs, no wheezing. Cardiac: Regular rate and rhythm. No murmurs, gallops, or rubs. Extremities: No edema. Wagner Agrawal MD [facility] 07-26-2023 Note HNO ID: [id number] Author: Hayde Sanchez Service: ? Author Type: ? Type: Progress Notes Filed: 07/28/2023 11:59 AM Note Text: Hepatitis B Vaccine(1 of 3 - 3-dose series) Never done Annual PCP Team Chronic Disease Visit Never done Hepatitis C Screening Never done HIV Screening Never done BP Controlled (<130/80) Never done Colorectal Cancer Screening Never done Shingrix Vaccine(1 of 2) Never done Influenza Vaccine(1) due on 04/16/2023 Covid-19 Vaccine( season) due on 04/16/2023 [facility] 06-21-2023 Note HNO ID: [id number] Author: Radha Chaney DO Service: ? Author Type: Resident Type: Progress Notes Filed: 06/28/2023 10:19 AM Note Text: PSYC FOLLOW UP - PSYCHIATRIC PROGRESS NOTE CC: Follow up With the patient consent, visit was performed virtually. I have communicated my name and active licensure. The patient's identity and physical location were verified at the time of this visit. Either the patient or their legal patient support representative has been informed of the risks and benefits of -- and alternatives to -- treatment through a remote evaluation and consents to proceed with the evaluation remotely. HPI: -Shashi is seen virtually. He is present for the visit with his Jacki. She stays throughout the visit and provides additional context with Shashi's permission. -At our last appointment his Latuda was discontinued, and he was cross titrated to Vraylar 4.5 mg. -Depression has notably improved since last visit. Less negativity and less irritability. Still some disengagement though (notes that he isn't as interactive in social situations as he normally would be). -Concentration and focus have improved. Less work issues over the last month. -Sleep is improved. Falls asleep a little later than is typical for him, but wakes up at his normal time of 5 am. Energy during the day is good. -Has noted that his mental obsession with fishing has continued, though it is improving. Spending less money on fishing items. Feels he can shop without having to buy fishing gear. Still talks about fishing a lot. Watches a lot of videos. Wakes up 2-3 times per night due to fishing related dreams. -Gained ten pounds in the last 2 months. Vraylar may be making him gain weight, which we did discuss, though he also notes that when his mood is low he tends to eat more, so it is likely multi-factorial. He will focus on his diet and activity more going forward. --SI, HI, AH, VH denied. -Interested in further increases of Vraylar dosage to target remaining symptoms. Risks and benefits of the medication, including any black box warnings, were discussed with the patient. He verbalizes understanding, and wishes to proceed with no changes. Interval Progress: Slightly improved PATIENT DATA: Generalized Anxiety Disorder Scale (PRABHA-7) PRABHA - 7 SCORES 03/29/2023 05/02/2023 06/21/2023 PRABHA-7 Score 3 9 6 (0-4) minimal anxiety, (5-9) mild anxiety, (10-14) moderate anxiety, (15-21) severe anxiety Patient Health Questionnaire (PHQ-9) PHQ-9 03/29/2023 05/02/2023 06/21/2023 Score 3 11 4 (0-4) minimal depression, (5-9) mild depression, (10-14) moderate depression, (15-19) moderately severe depression, (20-27) severe depression PROMIS Global Health PROMIS Global Health - (T-Scores - the mean of general population = 50. Five points is a clinically meaningful difference.) 11/16/2022 03/29/2023 06/21/2023 Physical T-Score 39.8 42.3 47.7 Mental T-Score 45.8 45.8 41.1 PAST MEDICAL HISTORY Diagnosis Date Pandey's esophagus Depression Psychiatric disorder PAST SURGICAL HISTORY Procedure Laterality Date EGD 11/28/2012 Repeat EGD in 3 years LAP REPAIR PARAESOPHAGEAL HERNIA 12/03/2022 w/ mesh PAST SURGICAL HISTORY OF Removal lipomas PAST SURGICAL HISTORY OF Multiple ECTs Current Outpatient Medications Medication Sig Dispense Refill cariprazine (VRAYLAR) 6 mg capsule Take 1 capsule by mouth once daily. 30 capsule 2 [START ON 07/07/2023] dexmethylphenidate XR (FOCALIN XR) 30 mg biphasic capsule Take 1 capsule by mouth two times a day for 90 days. Do not start before July 07, 2023. 180 capsule 0 lamoTRIgine (LAMICTAL) 200 mg tablet Take 1 tablet by mouth once daily. 90 tablet 0 gabapentin (NEURONTIN) 600 mg tablet Take 1 tablet by mouth three times a day for 90 days. 270 tablet 0 buPROPion SR (ZYBAN SR; WELLBUTRIN SR) 150 mg 12 hr tablet Take 1 tablet by mouth once daily. 90 tablet 0 divalproex ER (DEPAKOTE ER) 500 mg 24 hr tablet Take 5 tablets by mouth daily at bedtime. 450 tablet 0 propranolol ER (INDERAL LA) 120 mg 24 hr capsule Take 1 capsule by mouth daily. 90 capsule 3 lurasidone (LATUDA) 40 mg tablet Taking 100 mg daily in the morning 225 tablet 0 divalproex ER (DEPAKOTE ER) 500 mg 24 hr tablet Take 5 tablets by mouth daily at bedtime. Takign 1500mg in th morning and 1000 in the evening lisinopril (ZESTRIL) 10 mg tablet Take 10 mg by mouth once daily. testosterone (ANDROGEL) 25 mg/ 2.5g (1%) Apply to affected area once daily. simvastatin (ZOCOR) 20 mg tablet Take 20 mg by mouth daily at bedtime. rabeprazole (ACIPHEX) 20 mg tablet Take 1 tablet by mouth once daily. 90 tablet 3 No current facility-administered medications for this visit. ROS: Endorses occasional joint stiffness/pain All other systems negative. PFSH: No changes VITAL SIGNS: There were no vitals filed for this visit. MENTAL STATUS EXAM: CONSTITUTIONAL: Casually dressed, In no acute d (more content not included)... [facility] 05-03-2023 Note HNO ID: [id number] Author: Radha Chaney, DO Service: ? Author Type: Resident Type: Progress Notes Filed: 05/13/2023 2:37 PM Note Text: PSYC FOLLOW UP - PSYCHIATRIC PROGRESS NOTE CC: Follow up With the patient consent, visit was performed virtually. I have communicated my name and active licensure. The patient's identity and physical location were verified at the time of this visit. Either the patient or their legal patient support representative has been informed of the risks and benefits of -- and alternatives to -- treatment through a remote evaluation and consents to proceed with the evaluation remotely. HPI: -Shashi is seen virtually. He is present for the visit with his Jacki. She stays throughout the visit and provides additional context with Shashi's permission. -He recently saw his neurologist, who diagnosed him with essential tremor, and suspects parkinsonism symptoms related to the use of Latuda. -Propranolol was started to address his tremor. Has led to ~30% improvement in his tremor, but Shashi also feels that it has worsened his mood. Has been on this over the last month. -Reports that his mood has been low and progressively worsening over the last 1-2 months. He has noticed his thoughts are often negative, and he is frequently irritable. Struggling with concentration at work. 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 -Sleep is not good, waking up often. Up every other hour. Despite poor sleep his energy remains at his baseline. -He has noticed other changes as well. Cant go into a store and not buy fishing equipment. Doesn't know how much he has spent lately. Mentions multiple times that he does not need any of this fishing equipment, but he can't seem to stop himself from buying it. -Feels that he is depressed on one hand, but also feels prominent irritability and impulsivity, which are not typical for his depressive episodes. -Discussed mixed episodes, and he and his feel the descriptor fits very well with how he has been feeling/behaving. -Shashi is interested in changing his Latuda to an alternative antipsychotic, hoping for one with more robust effect for mixed episodes. We had an extensive R/B/A discussion regarding this, including discussion of ECT, TMS, and Ketamine as therapeutic options. Not interested in interventional techniques currently. Mentions previous very poor experience with ECT. He understands that there is no guarantee that he will see benefit to his possibly drug related parkinsonian symptoms with a change to an alternative antipsychotic. Understands that the risk of changing medications could also lead to worsening of his symptoms. Elects to proceed with transition to Vraylar from Latuda. -Denies SI, HI, AH, VH. No substance use. Risks and benefits of the medication, including any black box warnings, were discussed with the patient. He verbalizes understanding, and wishes to proceed with no changes. Interval Progress: Slightly worse PATIENT DATA: Generalized Anxiety Disorder Scale (PRABHA-7) PRABHA - 7 SCORES 01/16/2023 03/29/2023 05/02/2023 PRABHA-7 Score 3 3 9 (0-4) minimal anxiety, (5-9) mild anxiety, (10-14) moderate anxiety, (15-21) severe anxiety Patient Health Questionnaire (PHQ-9) PHQ-9 01/16/2023 03/29/2023 05/02/2023 Score 5 3 11 (0-4) minimal depression, (5-9) mild depression, (10-14) moderate depression, (15-19) moderately severe depression, (20-27) severe depression PROMIS Global Health PROMIS Global Health - (T-Scores - the mean of general population = 50. Five points is a clinically meaningful difference.) 11/16/2022 11/16/2022 03/29/2023 Physical T-Score 39.8 39.8 42.3 Mental T-Score 45.8 45.8 45.8 PAST MEDICAL HISTORY Diagnosis Date Pandey's esophagus Depression Psychiatric disorder PAST SURGICAL HISTORY Procedure Laterality Date EGD 11/28/2012 Repeat EGD in 3 years LAP REPAIR PARAESOPHAGEAL HERNIA 12/03/2022 w/ mesh PAST SURGICAL HISTORY OF Removal lipomas PAST SURGICAL HISTORY OF Multiple ECTs Current Outpatient Medications Medication Sig Dispense Refill cariprazine (VRAYLAR) 1.5 mg capsule Take 1 capsule by mouth once daily for 7 days, THEN 2 capsules once daily for 7 days, THEN 3 capsules once daily. 111 capsule 0 dexmethylphenidate XR (FOCALIN XR) 30 mg biphasic capsule Take 1 capsule by mouth twice daily for 30 days. Taking 40 mg in the morning and 20 mg mid day 60 capsule 0 propranolol ER (INDERAL LA) 120 mg 24 hr capsule Take 1 capsule by mouth daily. 90 capsule 3 lurasidone (LATUDA) 40 mg tablet Taking 100 mg daily in the morning 225 tablet 0 divalproex ER (DEPAKOTE ER) 500 mg 24 hr tablet Take 5 tablets by mouth daily at bedtime. Takign 1500mg in th morning and 1000 in the evening lamoTRIgine (LAMICTAL) 200 mg tablet Take 1 tablet by mouth once daily. 90 tablet 0 gabapentin (NEURO (more content not included)... [facility] 04-23-2023 Telephone encounter Note Refilled requested medication(s). [facility] 04-23-2023 Miscellaneous Notes Refilled requested medication(s). Last appointment 03/24/2023 , Next appointment is 09/24/2023 Last filled 04/29/22 1 month 11 refills documented in this encounter [facility] 2023 Telephone encounter Note Last appointment 03/24/2023 , Next appointment is 09/24/2023 Last filled 04/29/22 1 month 11 refills [facility] 04-01-2023 Note HNO ID: [id number] Author: Neal Marcus MD Service: ? Author Type: Physician Type: Progress Notes Filed: 04/01/2023 9:31 AM Note Text: [facility] - NEW PATIENT EVALUATION Primary Care Provider: Kirill Walsh [facility]. [address] [place] [id number] Dear Kirill Walsh: I had the pleasure of evaluating Mr. Cedeño in our clinic today. As you know he is a 52 year old right-handed male who presents for evaluation of tremor since 2012. He has a significant history of Bipolar 2 on Latuda and Depakote. He is seen with his . Subjective HISTORY OF PRESENT ILLNESS: Initial HPI He has a strong family history of tremor and a paternal aunt who had DBS with us. He has had tremor for more than 10 years and also has bipolar depression and has been on Latuda for a long time. His son is starting to develop tremor too. His son also has Bipolar and is on Latuda. His tremor is noticed mostly with action, and when he is carrying things. It is embarrassing for him. It makes it hard for him to work (he is a [employer]). Fishing is a chore. Its hard to tie a know in a line. In the last 6 months he has had some face twitching which is annoying. Tremor is worse when mad or excited. His depression has been bad at times. In 2011 he had ECT. Since then and on Latuda he has been dong well. He had been on a lot of medications before this. He sees a psychiatrist every 3 months. Movement Disorders Medications Schedule - as of the start of the visit: Medications None Questionnaires In addition, the following areas that may be affected by abnormal involuntary movements were evaluated: Daily activities Difficulties with eatin (none) Difficulties in dressin (none) Difficulties with hygiene activities: 0 (none) Difficulties with handwriting: Yes (slight) Difficulties with doing hobbies and other activities: Yes (mild) Difficulties turning in bed: 0 (none) Difficulties getting out of bed, car or chair: 0 (none) Tremors/Gait/Balance Shaking or tremors: Yes (severe) Walking and balance problems: 0 (none) Number of falls in the Last Month: None Gait freezin (none) Autonomic/Pain Lightheadeness on standin (none) Urinary problems: 0 (none) Constipation problems: 0 (none) Pain and other sensations: 0 (none) Speech/Swallowing Speech problems: Yes (mild) Droolin (none) Chewing and swallowing problems: 0 (none) Sleep/Fatigue Sleep problems: Yes (mild) Daytime sleepiness: 0 (none) Fatigue: Yes (slight) Mood/Behavior Depression: PHQ-9 Score: 3 usually representing no significant (0-4) depression. Anxiety: PRABHA-7 Total Score: 3 usually representing no significant (0-4) anxiety. Finally, the following table shows the patient's overall global physical and mental health using the PROMIS scale: PROMIS-10 Flowsheet Row Office Visit from 04/01/2023 in Neurology [facility] from 11/17/2022 in Psychiatry Global Physical Health T Score 42.3 39.8 Global Mental Health T Score 45.8 45.8 0-10 Standard Pain Scale 3 3 *PROMIS-10 scoring scale: mean = 50, over 50 is above average, under 50 is below average ALLERGIES Allergen Reactions [employer] Mental Status Change memory and cognitive dysfunction at a normal blood level Serzone [Nefazodone* Other: See Comments severe muscle cramps Current Outpatient Medications Medication Sig lurasidone (LATUDA) 40 mg tablet Taking 100 mg daily in the morning divalproex ER (DEPAKOTE ER) 500 mg 24 hr tablet Take 5 tablets by mouth daily at bedtime. Takign 1500mg in th morning and 1000 in the evening dexmethylphenidate XR (FOCALIN XR) 30 mg biphasic capsule Take 1 capsule by mouth twice daily for 90 days. Taking 40 mg in the morning and 20 mg mid day lamoTRIgine (LAMICTAL) 200 mg tablet Take 1 tablet by mouth once daily. gabapentin (NEURONTIN) 600 mg tablet Take 1 tablet by mouth three times daily for 90 days. buPROPion SR (ZYBAN SR; WELLBUTRIN SR) 150 mg 12 hr tablet Take 1 tablet by mouth once daily. lisinopril (ZESTRIL) 10 mg tablet Take 10 mg by mouth once daily. testosterone (ANDROGEL) 25 mg/ 2.5g (1%) Apply to affected area once daily. simvastatin (ZOCOR) 20 mg tablet Take 20 mg by mouth daily at bedtime. rabeprazole (ACIPHEX) 20 mg tablet Take 1 tablet by mouth once daily. propranolol ER (INDERAL LA) 60 mg 24 hr capsule Take 1 capsule by mouth once daily for 30 days, THEN 2 capsules once daily. No current facility-administered medications for this visit. Past Medical and Surgical History: has a past medical history of Pandey's esophagus, Depression, and Psychiatric disorder. has a past surgical history that includes egd (11/28/2012); past surgical history of; past surgical history of; and lap repair paraesophageal hernia (12/03/2022). Social History Tobacco Use Smoking status: Never Smokeless tobacco: Never Substance Use Topics Alcohol use: No (more content not included)... [facility] 03-24-2023 History of Present illness Narrative Images from the original note were not included. [facility] [id number] [facility] [address] [address] [facility] [id number] Visit Type: Office Visit PCP: Kirill Walsh MD Reason for Visit: Hypertension Assessment and Plan Shashi was seen today for hypertension. Diagnoses and all orders for this visit: Primary hypertension Hypotestosteronemia - CBC; Future - PSA, total and free; Future - Testosterone; Future - CBC - PSA, total and free - Testosterone His blood pressure is under good control on metoprolol succinate and amlodipine. No change to these at this time. He is due for labs which have been ordered for monitoring. Follow up for Next scheduled follow-up. Subjective Hypertension This is a chronic problem. The problem is controlled. Pertinent negatives include no anxiety, chest pain, headaches, malaise/fatigue, peripheral edema or shortness of breath. Agents associated with hypertension include amphetamines. Risk factors for coronary artery disease include male gender, obesity, smoking/tobacco exposure and dyslipidemia. Past treatments include calcium channel blockers and beta blockers. The current treatment provides significant improvement. There are no compliance problems. He notes that he is due for labs for testosterone soon. Notes that he feels ok on his current dose. Review of Systems Constitutional: Negative for malaise/fatigue. Respiratory: Negative for shortness of breath. Cardiovascular: Negative for chest pain. Neurological: Negative for headaches. Allergies Allergen Reactions Candesartan Other reaction(s): dizzy and tingling in hands and legs Other reaction(s): dizzy and tingling in hands and legs [employer] Nefazodone Outpatient Medications Prior to Visit Medication Sig Dispense Refill amLODIPine (Norvasc) 10 MG tablet TAKE 1 TABLET BY MOUTH EVERY DAY 90 tablet 3 B-D 3CC LUER-CRIS SYR [id number] 22G X 1-1/2 3 ML misc COVERED BY INSURANCE AND AVAILABLE. FOR USE BIWEEKLY. buPROPion SR (Wellbutrin SR) 150 MG 12 hr tablet Take 150 mg by mouth daily. dexmethylphenidate XR (Focalin XR) 20 MG 24 hr capsule Take 20 mg by mouth. divalproex (Depakote ER) 500 MG 24 hr tablet TAKE 5 TABLETS BY MOUTH DAILY AT BEDTIME. gabapentin (Neurontin) 600 MG tablet TAKE 1 TABLET BY MOUTH THREE TIMES DAILY FOR 90 DAYS. lamoTRIgine (LaMICtal) 200 MG tablet Take 200 mg by mouth daily. Latuda 40 MG tablet TAKE 2&1/2 TABLETS BY MOUTH DAILY WITH DINNER metoprolol succinate XL (Toprol-XL) 50 MG 24 hr tablet Take 1 tablet (50 mg) by mouth daily. 90 tablet 3 RABEprazole (Aciphex) 20 MG EC tablet Take 1 tablet (20 mg) by mouth daily. 90 tablet 3 sildenafil (Viagra) 100 MG tablet TAKE ONE TABLET BY MOUTH DAILY NEEDED FOR ERECTILE DYSFUNCTION simvastatin (Zocor) 20 MG tablet Take 1 tablet (20 mg) by mouth daily. 90 tablet 3 terbinafine (LamISIL) 250 MG tablet PLEASE SEE ATTACHED FOR DETAILED DIRECTIONS testosterone cypionate (Depo-Testosterone) 200 MG/ML injection Inject 1 mL (200 mg) into the shoulder, thigh, or buttocks every 14 (fourteen) days. 6 mL 1 fish oil-omega-3 fatty acids 1000 MG capsule Take by mouth. magnesium gluconate (Magonate) 500 MG tablet Take 400 mg by mouth. UNABLE TO FIND Med Name: beet juice UNABLE TO FIND Med Name: Liuco UNABLE TO FIND Med Name: Tiff food No facility-administered medications prior to visit. Past Medical History: Diagnosis Date ADD (attention deficit disorder) pt reported Pandey's esophagus pt reported Bipolar 1 disorder (HCC) pt reported Sciatica Sleep apnea pt reported Torn meniscus pt reported Social History Socioeconomic History Marital status: Tobacco Use Smoking status: Never Smokeless tobacco: Former Vaping Use Vaping Use: Never used Substance and Sexual Activity Alcohol use: Never Drug use: Never Social Determinants of Health Financial Resource Strain: Low Risk (09/23/2022) Overall Financial Resource Strain (CARDIA) Difficulty of Paying Living Expenses: Not hard at all Food Insecurity: No Food Insecurity (09/23/2022) Hunger Vital Sign Worried About Running Out of Food in the Last Year: Never true Ran Out of Food in the Last Year: Never true Transportation Needs: No Transportation Needs (09/23/2022) PRAPARE - Transportation Lack of Transportation (Medical): No Lack of Transportation (Non-Medical): No Physical Activity: Inactive (09/23/2022) Exercise Vital Sign Days of Exercise per Week: 0 days Minutes of Exercise per Session: 0 min Past Surgical History: Procedure Laterality Date HIATAL HERNIA REPAIR UPPER GASTROINTESTINAL ENDOSCOPY Past Surgical History: Procedure Laterality Date HIATAL HERNIA REPAIR UPPER GASTROINTESTINAL ENDOSCOPY Family History Problem Relation Name Age of Onset High Blood Pressure Mother Hyperlipidemia Mother Other ([id number]) Mother psychiatric issues Cancer Mother skin cancer Cancer Father skin cancer Other ([id number]) Father macular degeneration No Known Problems Brother No Known Problems Brother Anxiety disorder Daughter Depression Daughter Bipolar disorder Son Anxiety disorder Son Depression Son Objective BP 136/78 Pulse 84 Ht 5' 9 (1.753 m) Wt 216 lb (98 kg) SpO2 96% BMI 31.90 kg/m Physical Exam Vitals and nursing note reviewed. Constitutional: Appearance: Normal appearance. HENT: Head: Normocephalic and atraumatic. Cardiovascular: Rate and Rhythm: Normal rate and regular rhythm. Pulses: Normal pulses. Heart sounds: Normal heart sounds. No murmur heard. Pulmonary: Effort: Pulmonary effort is normal. Breath sounds: Normal breath sounds. No wheezing or rhonchi. Abdominal: General: Abdomen is flat. Bowel sounds are normal. Palpations: Abdomen is soft. Tenderness: There is no abdominal tenderness. Skin: General: Skin is warm and dry. Neurological: General: No focal deficit present. Mental Status: He is alert. Mental status is at baseline. Data Reviewed Labs: Imaging/Testing: Chart Clean Up: There are no discontinued medications. Kirill Walsh MD 03/26/2023 8:53 PM documented in this encounter [facility] 01-19-2023 Note HNO ID: [id number] Author: Radha Chaney, DO Service: ? Author Type: Resident Type: Progress Notes Filed: 02/11/2023 10:40 AM Note Text: PSYC FOLLOW UP - PSYCHIATRIC PROGRESS NOTE CC: Follow up With the patient consent, visit was performed virtually. I have communicated my name and active licensure. The patient's identity and physical location were verified at the time of this visit. Either the patient or their legal patient support representative has been informed of the risks and benefits of -- and alternatives to -- treatment through a remote evaluation and consents to proceed with the evaluation remotely. HPI: Shashi is seen virtually. He reports he is doing well. Yesterday was the first day back to work. Was out from working as he recently had a surgery to repair a hiatal hernia. Is finally feeling close to normal. Had lost a little weight over the last month due to dietary restrictions associated with the surgery. Says he lost around 30 pounds in 6 weeks. Appetite is normal. Has started to eat more solid foods now. Feels his psychiatric medications are working well. Mood and anxiety are back at their normal levels. Sleep is good, occasional Melatonin use. No anhedonia. Energy levels are good. Focalin seems to be working better at BID dosing. Concentration and focus are under good control. States he wants to continue the twice daily dosing going forward. No side effects reported. Denies other questions or concerns. Denies SI, HI, AH, VH. Risks and benefits of the medication, including any black box warnings, were discussed with the patient. He verbalizes understanding, and wishes to proceed with no changes. Interval Progress: Improved PATIENT DATA: Generalized Anxiety Disorder Scale (PRABHA-7) PRABHA - 7 SCORES 12/15/2022 12/15/2022 01/16/2023 PRABHA-7 Score 7 1 3 (0-4) minimal anxiety, (5-9) mild anxiety, (10-14) moderate anxiety, (15-21) severe anxiety Patient Health Questionnaire (PHQ-9) PHQ-9 12/15/2022 12/15/2022 01/16/2023 Score 14 9 5 (0-4) minimal depression, (5-9) mild depression, (10-14) moderate depression, (15-19) moderately severe depression, (20-27) severe depression PROMIS Global Health PROMIS Global Health - (T-Scores - the mean of general population = 50. Five points is a clinically meaningful difference.) 06/30/2022 11/16/2022 11/16/2022 Physical T-Score 44.9 39.8 39.8 Mental T-Score 43.5 45.8 45.8 PAST MEDICAL HISTORY Diagnosis Date Pandey's esophagus Depression Psychiatric disorder PAST SURGICAL HISTORY Procedure Laterality Date EGD 11/28/2012 Repeat EGD in 3 years LAP REPAIR PARAESOPHAGEAL HERNIA 12/03/2022 w/ mesh PAST SURGICAL HISTORY OF Removal lipomas PAST SURGICAL HISTORY OF Multiple ECTs Current Outpatient Medications Medication Sig Dispense Refill lurasidone (LATUDA) 40 mg tablet TAKE 2AND1/2 TABLETS BY MOUTH DAILY WITH DINNER 225 tablet 0 divalproex ER (DEPAKOTE ER) 500 mg 24 hr tablet Take 5 tablets by mouth daily at bedtime. 450 tablet 0 lamoTRIgine (LAMICTAL) 200 mg tablet Take 1 tablet by mouth once daily. 90 tablet 0 gabapentin (NEURONTIN) 600 mg tablet Take 1 tablet by mouth three times daily for 90 days. 270 tablet 0 buPROPion SR (ZYBAN SR; WELLBUTRIN SR) 150 mg 12 hr tablet Take 1 tablet by mouth once daily. 90 tablet 0 dexmethylphenidate (FOCALIN XR) 30 mg MP50 Capsule ER Take 1 capsule by mouth twice daily for 30 days. 60 capsule 0 acetaminophen (TYLENOL) 325 mg tablet Take 2 tablets by mouth every 6 hours as needed for pain. metoprolol succinate ER (TOPROL XL) 50 mg 24 hr tablet Take 50 mg by mouth once daily. lisinopril (ZESTRIL) 10 mg tablet Take 10 mg by mouth once daily. testosterone (ANDROGEL) 25 mg/ 2.5g (1%) Apply to affected area once daily. ibuprofen (MOTRIN) 800 mg tablet Take 1 tablet by mouth every 8 hours as needed for pain. 14 tablet 0 simvastatin (ZOCOR) 20 mg tablet Take 20 mg by mouth daily at bedtime. rabeprazole (ACIPHEX) 20 mg tablet Take 1 tablet by mouth once daily. 90 tablet 3 No current facility-administered medications for this visit. ROS: Endorses occasional joint stiffness/pain All other systems negative. PFSH: No changes VITAL SIGNS: There were no vitals filed for this visit. MENTAL STATUS EXAM: CONSTITUTIONAL: Casually dressed, In no acute distress ORIENTATION: Person, Place, Time and Situation MEMORY: Recent intact, Remote intact, Immediate intact CONCENTRATION: Normal MOOD: I feel good, back to normal AFFECT: Full and appropriate to topic SPEECH : Clear AND distinct LANGUAGE : Normal ASSOCIATIONS: Intact THOUGHT PROCESS : Logical, Coherent, and Rational PROGRESSION : There was no evidence of disturbance in thought perception or progression. FUND OF KNOWLEDGE : Appropriate and Adequate SUICIDE: None HOMICIDE: None DATA REVIEWED: Psychiatric scales and Electronic medical record DIAGNOSIS: PRIMARY: PRIMARY: Bipolar 2 disorder Secondary (more content not included)... [facility] 01-01-2023 Note HNO ID: [id number] Author: Jannette Wise MD Service: ? Author Type: Physician Type: Progress Notes Filed: 01/01/2023 6:23 PM Note Text: Here for f/u States feels so much better now and dysphagia has almost fully resolved w pills and liquid diet He wants to advance diet Can advance to soft diet and we discussed that recs in detail He is happy w his care and his progress Jannette Wise MD January 01, 2023 6:23 PM [facility] 12-15-2022 Note HNO ID: [id number] Author: Radha Chaney DO Service: ? Author Type: Resident Type: Progress Notes Filed: 12/15/2022 4:48 PM Note Text: Patient with no show visit earlier in day. Had mixed up appointment times. Had called in to reschedule and was given this appointment. Shortly after he had called in to the office I spoke with the patient over the phone to check in with him following his no show, and he noted that he has been experiencing improvement to his psychiatric symptoms since our last appointment together. Has been having some ongoing struggles with his hiatal hernia, which is affecting his appetite. Has procedure in the am tomorrow. States he would prefer to check in later in the month for a follow up visit once he has recovered from his procedure. This appointment was cancelled. Will reschedule for January 19, 2023 at 3:40 pm. Radha Chaney DO [facility] 12-15-2022 Note HNO ID: [id number] Author: Radha Chaney DO Service: ? Author Type: Resident Type: Progress Notes Filed: 12/15/2022 2:34 PM Note Text: Patient no show for virtual visit. Radha Chaney DO [facility] 12-11-2022 Telephone encounter Note Refilled requested medication(s). [facility] 12-11-2022 Miscellaneous Notes Refilled requested medication(s). Medication pended, please review Medication name: simvastatin (Zocor) 20 MG tablet Medication dosage: 20 mg (Miligrams Monthly quantity needed: 30 How many day supply requestin days Medication route: oral (PO) Medication administration time(s): daily If taking medication PRN, reason for taking medication: N/A If this is a controlled substance do you receive this or any other controlled medication from any other doctor or facility: No Ordering provider: Dr Walsh Date of last office visit: 09/23/2022 Date of next office visit: 03/24/2023 Date of last refill: (see medication tab): 12/11/2021 Updated/Validated preferred pharmacy: Yes Patient instructed to contact the pharmacy prior to picking up the medication: Yes documented in this encounter [facility] 12-09-2022 Telephone encounter Note Medication pended, please review [facility] 12-09-2022 Telephone encounter Note Medication name: simvastatin (Zocor) 20 MG tablet Medication dosage: 20 mg (Miligrams Monthly quantity needed: 30 How many day supply requestin days Medication route: oral (PO) Medication administration time(s): daily If taking medication PRN, reason for taking medication: N/A If this is a controlled substance do you receive this or any other controlled medication from any other doctor or facility: No Ordering provider: Dr Walsh Date of last office visit: 09/23/2022 Date of next office visit: 03/24/2023 Date of last refill: (see medication tab): 12/11/2021 Updated/Validated preferred pharmacy: Yes Patient instructed to contact the pharmacy prior to picking up the medication: Yes [facility] 12-04-2022 Note HNO ID: [id number] Author: LOGAN Salvador Service: Care Management Author Type: Research Director Type: Care Mgt Initial Assessment Filed: 12/04/2022 11:19 AM Note Text: CARE MANAGEMENT: ASSESSMENT AND DISCHARGE PLAN SERVICE DATE: December 04, 2022 SERVICE TIME: 11:14 AM PCP: Kirill Walsh MD Primary Contact: Extended Emergency Contact Information Primary Emergency Contact: Jacki Cedeño Address: [address] [place] [id number] [facility] Mobile Relation: Spouse Admission Status: Observation Insurance Provider: [facility] PLUS Discharge Planning requested by: Per Department Practice Potential Transition Plans Home Advance Directives Current Advance Directive: None Family Life Educator Attempted to Assist with AD Completion: Yes Action: Education Provided Current Living Arrangements and Support Lives with: Spouse/significant other Type of Residence: Private Residence (House) Does the patient have to climb stairs at home?: Yes Support: Family members, Spouse/significant other, Children How do you manage to accomplish the following: Independent: Ambulation;Bathe/Shower;Meals/Ayana l Prep;Dress;Going to the bathroom;Medication Management;Transportation to appointments/community Current Services/Equipment Current Post-Acute Service(s): None Discharge Planning Patient Goal(s): Be able to go home, General wellness Are you interested in bedside delivery of your medications? No Discharge Planning Participant(s): Patient Patient/Family Comments: none Caregiver Assessment: Caregiver is ready, willing and able to meet the patient's needs as recommended by the inter-professional team: No Caregiver needed Transport at Discharge: Transportation Arrangements: Car Destination: Home Needs Prior to Discharge: Needs Prior to Discharge: None Post-Acute Discharge Plan: SW spoke with pt bedside on PK1. Pt is 52yo male who presents with paraesophageal hernia, POD#1. H/O Bipolar, ADD, HTN, Panic Disorder, HLD, Sleep Apnea. AANDOX4 per nursing assessment, reports being independent at home with ADLs and iADLs, lives with his Jacki, working full-time, drives. Does not utilize any DME, skilled services, or community resources at this time. will transport home. Anticipate no skilled needs at d/c. SW/CM available to assist as needed with transition planning. SIGNATURE: VICTORIA Salvador PATIENT NAME: Shashi Cedeño DATE: December 04, 2022 TIME: 11:13 AM CONTACT #: [phone] [facility] 12-04-2022 Note HNO ID: [id number] Author: Jose C Dover MD Service: General Surgery Author Type: Resident Type: Progress Notes Filed: 12/04/2022 8:20 AM Note Text: SURGERY INPATIENT PROGRESS NOTE Patient Name: Shashi Cedeño Assessment and Plan: 52 year old male with history of Pandey esophagus, depression who was admitted on 12/03/2022 for a large hiatal hernia. POD 1 s/p laparoscopic paraesophageal hernia repair with mesh Expectant postoperative course; optimal analgesia. 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 Replete lytes prn Heme: no indication for transfusion ID: preop ancef complete Endo: none Prophylaxis: chemoppx, SCDs Dispo: RNF. Plan for DC today on fulls Plan discussed with Surgery Staff Dr. Frandy Dover MD General Surgery PGY-1 Green Team Pager: [phone] On-Call Pager: [phone] Subjective: No acute events overnight. Pain well controlled. No nausea or vomiting. Tolerates clears. Not passing flatus or had BM. Physical Exam: BP 140/90 Pulse 111 Temp 36.6 ?C (97.9 ?F) (Oral) Resp 20 SpO2 94% GENERAL: Alert and oriented, no acute distress, cooperative. LUNGS: Non labored breathing ABDOMEN: soft, appropriately tender, non distended. WOUND: clean, dry and intact Labs: CBC, BMP, MG, PHOS Recent Labs 12/04/22 0611 01/17/21 1129 03/08/19 0943 11/28/18 0803 11/04/18 0753 04/06/16 0738 12/09/15 1934 WBC 9.22 5.43 7.00 < > 10.58 < > 6.66 HB 17.8* 16.2 15.5 < > 15.5 < > 14.9 HCT 52.3* 47.5 47.7 < > 47.8 < > 43.2 PLT 164 216 224 < > 241 < > 222 NA 143 137 -- -- 140 < > 140 K 4.8 4.3 -- -- 5.1 < > 3.5 CHLOR 100 99 -- -- 97 < > 98 CO2 31* 28 -- -- 32* < > 26 BUN 15 9 -- -- 19 < > 22 CREAT 1.09 1.00 -- -- 1.09 < > 0.89 GLUC 103* 96 -- -- 105* < > 148* CA 9.3 9.1 -- -- 10.2 < > 9.5 MG -- -- -- -- -- -- 1.7 < > = values in this interval not displayed. Liver Function, Amylase, AND Lipase Recent Labs 12/04/22 0611 01/17/21 1129 11/04/18 0753 04/06/16 0738 TPROT 6.2* 6.5 7.1 6.4 ALB 4.0 4.2 4.6 4.3 ALT -- 31 50 22 AST -- 33 30 21 ALKPHOS 46 56 55 60 TBILI 1.5* 1.0 1.0 0.6 Coags No results for input(s): APTT, PT, INR in the last 30011 hours. Intake and Output: Date 12/03/22699 - 12/04/2265812/04/22699 - 12/05/22 0659 Shift 9070-7186 8055-7973 8954-0720 24 Hour Total 9187-3821 0319-7027 3636-6505 24 Hour Total INTAKE IV 2325 2325 Volume (mL) (ceFAZolin iv piggyback 2 g in D5W (iso-osmotic) 100 mL (ANCEF)) 125 125 Volume (mL) (lactated ringers iv infusion) 2200 2200 Shift Total 2325 2325 OUTPUT Urine 322 125 7733 1725 575 575 Void (ml) 100 1150 1250 575 575 OR Urine Output 280 280 Output ([REMOVED] Indwelling Urinary Catheter 12/03/22 0750 Coude 16 Fr 12/03/22 1630) 45 150 195 Shift Total 322 146 2953 1725 575 575 Weight (kg) Current Medications: Current Facility-Administered Medications Medication Dose Route Frequency gabapentin 600 mg tab(s) (NEURONTIN) 600 mg ORAL TID lamoTRIgine 200 mg tab(s) (LaMICtal) 200 mg ORAL DAILY simvastatin 20 mg tab(s) (ZOCOR) 20 mg ORAL AT BEDTIME lurasidone (LATUDA) tab(s) 100 mg 100 mg ORAL DAILY wDINNER metoprolol succinate ER 50 mg tab(s) (TOPROL XL) 50 mg ORAL DAILY buPROPion SR 150 mg tab(s) (ZYBAN SR; WELLBUTRIN SR) 150 mg ORAL DAILY heparin 5,000 Units injection 5,000 Units SUBCUTANEOUS q 8 H lactated ringers iv infusion 5-30 mL/hr INTRAVENOUS CONTINUOUS ondansetron 4 mg tab(s) (ZOFRAN) 4 mg ORAL q 6 H PRN Or ondansetron (PF) 4 mg injection (ZOFRAN) 4 mg INTRAVENOUS q 6 H PRN NaCl 0.9% iv infusion 5-30 mL/hr INTRAVENOUS CONTINUOUS naloxone 0.1 mg injection (NARCAN) 0.1 mg INTRAVENOUS q 2 MIN PRN pantoprazole 40 mg injection (PROTONIX) 40 mg INTRAVENOUS DAILY (6 AM) acetaminophen 650 mg tab(s) (TYLENOL) 650 mg ORAL q 6 H divalproex ER 1,000 mg tab(s) (DEPAKOTE ER) 1,000 mg ORAL AT BEDTIME divalproex ER 1,500 mg tab(s) (DEPAKOTE ER) 1,500 mg ORAL DAILY lidocaine 4 % 1 Patch (SALONPAS) 1 Patch TRANSDERMAL DAILY AT 9 PM And lidocaine patch - REMOVE OTHER DAILY And lidocaine - VERIFY PATCH OTHER q 8 H ibuprofen 400 mg tab(s) (MOTRIN) 400 mg ORAL q 6 H PRN oxyCODONE IR 5 mg tab(s) (ROXICODONE) 5 mg ORAL q 4 H PRN HYDROmorphone 0.2 mg injection (DILAUDID) 0.2 mg INTRAVENOUS q 6 H PRN *A review of daily goals, interventions, and plan of care with the multidisciplinary team and patient has been conducted. The patient?s concerns have been addressed and he/she agrees to proceed with today?s plan of care. [facility] 12-03-2022 Note HNO ID: [id number] Author: Ray Galvan RN Service: ? Author Type: Registered Nurse Type: Nursing Progress Note Filed: 12/03/2022 4:19 PM Note Text: Dr. Wise in to assess patient. Verbal orders to remove summers received. 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 CLINICAL IMPLEMENTATION SPECIALIST: Percy Gautam APRN.CLINICAL IMPLEMENTATION SPECIALIST Performed by: BERNADINE Indications and Patient Condition Indications for airway management: anesthesia and airway protection Preoxygenated: yes anesthesia circuit Patient position: sniffing Method: asleep Cricoid Pressure: No Manual In-Line Stabilization: No Difficult Mask: No (Easy 2 handed mask) Airway Accessory: oral airway Final Airway Details Final airway type: endotracheal airway Final Endotracheal Airway: ETT Cuffed: yes Successful intubation technique: video laryngoscopy Devices used: Rust (small mouth, short thick neck.) Endotracheal tube insertion site: oral Blade: Carol Blade size: #4 ETT size (mm): 7.5 Measured from: lips Measurement (cm): 23 Placement verified by: chest auscultation and capnometry Cormack-Lehane Classification: grade IIa - partial view of glottis Number of attempts at approach: 1 Ventilation between attempts: none Failed airway: no Unrecognized esophageal intubation: no Airway not difficult SIGNATURE: Percy Gautam APRN.CLINICAL IMPLEMENTATION SPECIALIST PATIENT NAME: Shashi Cedeño DATE: December 03, 2022 TIME: 7:51 AM CSN: [id number] [facility] 11-30-2022 Telephone encounter Note Medication pended, please review T [facility] 11-30-2022 Miscellaneous Notes Medication pended, please review Patient stopped in the office Needs a refill on RABEprazole (Aciphex) 20 MG EC tablet Sent to [facility] on [address]. documented in this encounter [facility] 11-30-2022 Telephone encounter Note Patient stopped in the office Needs a refill on RABEprazole (Aciphex) 20 MG EC tablet Sent to [facility] on [address]. [facility] 11-17-2022 Note HNO ID: [id number] Author: Radha Chaney, DO Service: ? Author Type: Resident Type: Progress Notes Filed: 11/23/2022 11:13 AM Note Text: Attestation signed by Ang Madison MD at 11/23/2022 11:54 AM I have communicated my name and active licensure. The patient's identity and physical location were verified at the time of this visit. Either the patient or their legal patient support representative has been informed of the risks and benefits of -- and alternatives to -- treatment through a remote evaluation and consents to proceed with the evaluation remotely. Attending Note I evaluated the patient and personally participated in the vila components. I agree with the resident's findings and plan as documented and have discussed the case and management of the patient's care with the resident. Signature: Ang Madison MD Date: 11/23/2022 Time: 11:54 AM PSYC FOLLOW UP - PSYCHIATRIC PROGRESS NOTE CC: Follow up With the patient consent, visit was performed virtually. I have communicated my name and active licensure. The patient's identity and physical location were verified at the time of this visit. Either the patient or their legal patient support representative has been informed of the risks and benefits of -- and alternatives to -- treatment through a remote evaluation and consents to proceed with the evaluation remotely. HPI: Shashi is seen virtually. His is present for the duration of this visit with his permission. He mentions that there have been some prominent stressors for him recently. Has been told he will need bilateral knee replacements. May not be able to do his current work any longer. Is trying to come up with alternative career paths. He also has a Hiatal hernia repair in the next few weeks. Starting to get a noticeable hand tremor over the last 6 months. Does not occur at rest. Generally worst when reaching for an item. Notes that multiple family members have the same tremor. After reading online about tremors, patient self lowered his doses of Lamotrigine and Depakote ~1-2 months ago. Shortly after doing so he noted increased irritability, lower energy, lower motivation. Mood has been lower than normal. I don't feel depressed, but I have felt like I am heading that way . Denies SI, HI. Denies AH, VH. Tremor did not improve at lowered doses. Discussed the importance of returning his medications to their therapeutic dosages, and he is in agreeance. Has been stable on previous medication doses for over a decade. He and his have already been planning to make an appointment with Neurology for evaluation of his tremor. Risks and benefits of the medication, including any black box warnings, were discussed with the patient. He verbalizes understanding, and wishes to proceed with no changes. Interval Progress: Slightly worse PATIENT DATA: Generalized Anxiety Disorder Scale (PRABHA-7) PRABHA - 7 SCORES 06/23/2022 06/30/2022 11/17/2022 PRABHA-7 Score 1 2 4 (0-4) minimal anxiety, (5-9) mild anxiety, (10-14) moderate anxiety, (15-21) severe anxiety Patient Health Questionnaire (PHQ-9) PHQ-9 06/21/2022 06/30/2022 11/16/2022 Score 3 3 11 (0-4) minimal depression, (5-9) mild depression, (10-14) moderate depression, (15-19) moderately severe depression, (20-27) severe depression PROMIS Global Health PROMIS Global Health - (T-Scores - the mean of general population = 50. Five points is a clinically meaningful difference.) 06/30/2022 11/16/2022 11/16/2022 Physical T-Score 44.9 39.8 39.8 Mental T-Score 43.5 45.8 45.8 PAST MEDICAL HISTORY Diagnosis Date Pandey's esophagus Depression Psychiatric disorder PAST SURGICAL HISTORY Procedure Laterality Date EGD 11/28/2012 Repeat EGD in 3 years PAST SURGICAL HISTORY OF Removal lipomas PAST SURGICAL HISTORY OF Multiple ECTs Current Outpatient Medications Medication Sig Dispense Refill lurasidone (LATUDA) 40 mg tablet TAKE 2AND1/2 TABLETS BY MOUTH DAILY WITH DINNER 225 tablet 0 divalproex ER (DEPAKOTE ER) 500 mg 24 hr tablet Take 5 tablets by mouth daily at bedtime. 450 tablet 0 lamoTRIgine (LAMICTAL) 200 mg tablet Take 1 tablet by mouth once daily. 90 tablet 0 gabapentin (NEURONTIN) 600 mg tablet Take 1 tablet by mouth three times daily for 90 days. 270 tablet 0 buPROPion SR (ZYBAN SR; WELLBUTRIN SR) 150 mg 12 hr tablet Take 1 tablet by mouth once daily. 90 tablet 0 Dexmethylphenidate (FOCALIN XR) 20 mg Capsule ER Take 1 capsule by mouth three times daily for 90 days. 270 capsule 0 lisinopril (ZESTRIL) 10 mg tablet Take 10 mg by mouth once daily. testosterone (ANDROGEL) 25 mg/ 2.5g (1%) Apply to affected area once daily. metoprolol succinate ER (TOPROL XL) 100 mg Take 150 mg by mouth once daily. ibuprofen (MOTRIN) 800 mg tablet Take 1 tablet by mouth every (more content not included)... [facility] documented in this encounter [facility] HealthInstructions* Instruction Text No instruction information i s available. [facility] Summary Purpose Family History No Family History Records FoundNo Family History Records FoundNo Family History Records FoundNo Family History Records FoundNo Family History Records FoundNo Family History Records FoundNo Family History Records Found Advance Directives No Advanced Directives Records FoundNo Advanced Directives Records FoundNo Advanced Directives Records FoundNo Advanced Directives Records FoundNo Advanced Directives Records FoundNo Advanced Directives Records FoundNo Advanced Directives Records Found Additional Source Comments (unrecognized sect ion and content) No Status Records FoundNo Status Records FoundNo Status Records FoundNo Status Records FoundNo Status Records FoundNo Status Records FoundNo Status Records Found INFORMATION SOURCE (unrecogn ized section and content) DATE CREATED AUTHOR AUTHOR'S ORGANIZ ATION 01/16/2019 [facility] DATE CREATED AUTHOR AUTHOR'S ORGANIZ ATION 12/17/2022 [facility] DATE CREATED AUTHOR AUTHOR'S ORGANIZ ATION 08/30/2023 [facility] DATE CREATED AUTHOR [facility] AT[facility] DATE CREATED AUTHOR AUTHOR'S ORGANIZ ATION 10/18/2023 [facility] DATE CREATED AUTHOR AUTHOR'S ORGANIZ ATION 10/26/2023 [facility] Reason for Visit (unrecogniz ed section and content) Reason Onset Date Comments Med Refill 12/09/2022 simvastatin (Zoc or) 20 MG tablet Reason Comments Hypertension Reason Comments Med Refill Care Teams (unrecognized sec tion and content) Pan Operator Relationship Specialty Start Date End Date Kirill Walsh MD [address] [place] [id number] PCP - General 08/19/20 Pan Operator Relationship Specialty Start Date End Date Kirill Walsh MD [address] [place] [address] [address] [place] [address] PCP - General 08/19/20 Pan Operator Relationship Specialty Start Date End Date Kirill Walsh MD [address] [place] [address] [address] [place] [address] PCP - General 08/19/20 Pan Operator Relationship Specialty Start Date End Date Kirill Walsh MD [address] [place] [address] PCP - General 08/19/20 FOR RECORDS PERTAINING TO PATIENTS WHO ARE OR HAVE BEEN ENROLLED IN A CHEMICAL DEPENDENCY/SUBSTANCEABUSE PROGRAM, SOME INFORMATION MAY BE OMITTED. This clinical summary was aggregated from multiple sources. Caution should be exercised in using it in the provision of clinical care. This summary normalizes information from multiple sources, and as a consequence, information in this document may materially change the coding, format and clinical context of patient data. In addition, data may be omitted in some cases. CLINICAL DECISIONS SHOULD BE BASED ON THE PRIMARY CLINICAL RECORDS. [facility]. provides no warranty or guarantee of the accuracy or completeness of information in this document.
--- NOTE | 2023-10-29 07:13 | MRI_ITS ---
STUDY: MRI LEFT KNEE REASON FOR EXAM: Male, 53 years old. Pain. TECHNIQUE: Standardized fat and water weighted pulse sequences were obtained in all 3 orthogonal planes. COMPARISON: Left knee radiographs dated 04/01/2022. FINDINGS: Normal medial meniscus. Normal hyaline cartilage of the medial femorotibial compartment. Normal medial femoral condyle and tibial plateau. Normal medial collateral ligamentous complex (MCL). Normal distal semimembranosus, gracilis and semitendinosus tendons. Normal lateral meniscus. Normal hyaline cartilage of the lateral femorotibial compartment. Normal lateral femoral condyle and tibial plateau. Normal proximal tibiofibular articulation. Normal lateral collateral ( fibular ) ligament. Normal popliteus tendon. Normal biceps femoris tendon. Normal anterior cruciate ligament (ACL). Normal posterior cruciate ligament (PCL). There is moderate to high-grade chondromalacia along the femoral trochlear notch and lateral femoral trochlea with underlying subchondral marrow edema. There is slight lateral patellar subluxation. Normal medial and lateral patellar retinaculum. Normal quadriceps tendon. Normal patellar tendon. Normal Hoffa''s fat pad. There is a small joint effusion. There is a small popliteal cyst. There is mild subcutaneous soft tissue edema along the anterior aspect of the knee. There is no acute fracture. 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 Slight lateral patellar subluxation. Small joint effusion with a small popliteal cyst. Mild subcutaneous soft tissue edema along the anterior aspect of the knee. No discrete meniscal tear or acute ligamentous injury. Electronically Signed: Luis F Barber MD at 10:29 EDT ,
--- NOTE | 2023-10-29 07:13 | MRI_ITS ---
STUDY: MRI RIGHT KNEE REASON FOR EXAM: Male, 53 years old. Pain. TECHNIQUE: Standardized fat and water weighted pulse sequences were obtained in all 3 orthogonal planes. COMPARISON: Right knee radiographs dated 04/01/2022. FINDINGS: There is a horizontal tear of the posterior horn of the medial meniscus (sagittal PD series 3 images 30-38). There is degenerative free edge tearing of the body of the medial meniscus with peripheral extrusion. There is degenerative arthrosis of the medial femorotibial compartment with joint space narrowing, marginal osteophyte formation, high-grade chondromalacia, and subchondral marrow edema on both sides of the joint. Normal medial collateral ligamentous complex (MCL). Normal distal semimembranosus, gracilis and semitendinosus tendons. Normal lateral meniscus. Normal hyaline cartilage of the lateral femorotibial compartment. There is mild osteoarthritic spur formation of the lateral knee compartment. Normal proximal tibiofibular articulation. Normal lateral collateral ( fibular ) ligament. Normal popliteus tendon. Normal biceps femoris tendon. Normal anterior cruciate ligament (ACL). Normal posterior cruciate ligament (PCL). There is moderate grade chondromalacia along the femoral trochlear notch with underlying subchondral marrow edema. Congruent patellofemoral articulation. Normal medial and lateral patellar retinaculum. Normal quadriceps tendon. Normal patellar tendon. Normal Hoffa''s fat pad. There is a moderate volume joint effusion. There is a small popliteal cyst, containing a 1.3 cm calcified loose body. There is mild subcutaneous soft tissue edema along the anterior aspect of the knee. There is no acute fracture. MRI/Lower Ext Joint Only (Routine) IMPRESSION: Horizontal tear of the posterior horn of the medial meniscus. Degenerative free edge tearing of the body of the medial meniscus with peripheral extrusion. Tricompartment degenerative arthrosis. Moderate joint effusion. Small popliteal cyst, containing a 1.3 cm calcified loose body. Mild subcutaneous soft tissue edema along the anterior aspect of the knee. Electronically Signed: Luis F Barber MD at 11:03 EDT ,
== END | disposition home or self-care (01) ==
PROVIDERS: PCP Internal Medicine; Referring Provider Orthopaedic Surgery; Visit Provider Orthopaedic Surgery
DX: M25.562 Pain in left knee (principal)
CPT/HCPCS: 73721